=== PATIENT | female | born 1955 | race Caucasian/White ===

== ENCOUNTER → 2016-11-18 | Outpatient (CLI) | payer OTHER ==
[~2016-11-18] MED LIST: ALDACTONE25 MG PO; AMITRIPTYLINE H50 MG PO; AMPYRA10 MG PO; BACLOFEN10 MG PO; BACLOFEN20 M1 PO; BACTRIM DS TABL1 TA1; BUMEX2 MG PO; CALCIUM + D 6001 TA1 PO; CERTAGEN PO; CO Q10100 MG PO; CO Q10200 MG PO; CRESTOR PO; DIOVAN HCT 80/11 TAB PO; DIOVAN PO; FISH OIL 1,2001 CAP PO; FOSAMAX PO; FOSAMAX70 MG PO; FUROSEMIDE40 MG PO; HYDROCODON-ACE1 EAC7 PO; IBUPROFEN PO; IBUPROFEN400 MG PO; KCL PO; LEVAQUIN PO; LIDODERM30 EA; LIPITOR40 MG PO; LYRICA PO; MACROBID 100 M100 MG PO; MACROBID100 MG PO; MAGNESIUM250 M1 PO; MAGNESIUM500 MG PO; NATALIZUMAB; NATURAL VITA400 UNI2 PO; NEXIUM PO; OYSTER CALCIUM500 MG PO; PERCOCET PO; PROVIGIL; PROVIGIL PO; PROVIGIL100 MG PO; TYSABRI; TYSABRI IV; ULTRAM PO; VALSARTAN-HCTZ1 EACH PO; VICODIN PO; VITAMIN B-1000 MCG/1 IJ; VITAMIN B12; VITAMIN B6200 MG PO; VITAMIN D-32000 UNI1 PO; VITAMIN D31000 UNI1; WATER PILL; ZOCOR PO; [UNRECOGNIZED DRUG - OTHER]; [UNRECOGNIZED DRUG - OTHER]
== END | disposition home or self-care (01) ==
LOC: CSSDAY 09:48
DX: G35 Multiple sclerosis (principal); Z79.899 Other long term (current) drug therapy; Z88.5 Allergy status to narcotic agent
CPT/HCPCS: 96413; J2323

== ENCOUNTER → 2016-12-10 | Outpatient (CLI) | payer MEDICARE ==
--- NOTE | ~2016-12-10 | MY11 ---
[facility] A Service of [facility] RADIOLOGY TEXT RESULTS PATIENT: TABBY MÉNDEZ LOCATION: [facility] : 51 UNIT #: [id number] AGE: [address]: Napoleon Mckeon MD SEX: F ORDER DR: [id number] [address] [address] [id number] O MR#: [id number] Acc #: [id number] NAME: TABBY MÉNDEZ : 1955 SEX: F STUDY DATE/TIME: 12/10/2016 12:24 UNIT: [facility] ROOM: STUDY DESCRIPTION: MY Mammogram Screening Dig Cipriano Attending Physician: Napoleon Mckeon M.D. Referring Physician: Napoleon Mckeon M.D. Ordering Physician: Napoleon Mckeon M.D. Primary Care Physician: Napoleon Mckeon M.D. MEDICAL IMAGING REPORT This report is preliminary unless electronic signature is present. EXAM Digital screening mammogram, 12/10/2016 HISTORY 61-year-old woman no risk elevation. Annual screening. COMPARISON Mammograms date to 06/15/2008 with most recent screening comparison 12/02/2015. FINDINGS Digital imaging of each breast was completed utilizing screening protocol. Review includes FDA-approved CAD device. Breast parenchyma remains moderately dense with a nodular pattern bilaterally. There is mild subareolar duct prominence in each breast. There is no developing mass. I see no interval occurring microcalcifications and no suspicious architectural deformity. IMPRESSION Stable benign mammogram. Annual screening recommended. Patients over the age of 40 are entered into a reminder system with target due date for the next mammogram. A result letter will also be sent to the patient. BIRADS: 2 Benign Finding Dictated by... Mustapha Qiu M.D. THIS IS AN ELECTRONICALLY VERIFIED REPORT Mustapha Qiu M.D. at 12/10/2016 2:59 PM [facility] A Service [facility] RADIOLOGY TEXT RESULTS PATIENT: TABBY MÉNDEZ LOCATION: [facility] : 51 UNIT #: [id number] AGE: [address]: Napoleon Mckeon MD SEX: F ORDER DR: CHEN/steve TD: 12/10/2016 12:55 JOB #: [id number] MEDICAL IMAGING REPORT Page 1 of 1
== END | disposition home or self-care (01) ==
LOC: SMAM 11:34
DX: Z12.31 Encounter for screening mammogram for malignant neoplasm of breast (principal)
CPT/HCPCS: G0202

== ENCOUNTER → 2016-12-16 | Outpatient (CLI) | payer OTHER | END | disposition home or self-care (01) | LOC: CSSDAY 09:50 | DX: G35 Multiple sclerosis (principal); Z79.899 Other long term (current) drug therapy; Z88.5 Allergy status to narcotic agent | CPT/HCPCS: 96413; J2323 ==

== ENCOUNTER → 2017-01-13 | Outpatient (CLI) | payer OTHER ==
[2017-01-13 10:23] LABS: BASOPHIL# 0.1 X10e3 (0-0.3); BASOPHIL% 0.7 % (0-2.5); EOSINOPHIL# 0.6 X10e3 (0-0.7); EOSINOPHIL% 6.5 % (0.0-7.0); HEMATOCRIT 37.5 % (35.0-45.0); HEMOGLOBIN 12.4 gm/dL (12.0-16.0); LYMPHOCYTE# 3.6 X10e3 (1.0-3.5); LYMPHOCYTE% 39.4 % (17.0-45.0); MEAN CELL VOLUME 90.9 FL (83-96); MEAN CORPUSCULAR HEMOGLOBIN 30.1 PG (28-34); MEAN CORPUSCULAR HGB CONC 33.1 g/dL (30-36); MEAN PLATELET VOLUME 6.4 FL (6.5-11.5); MONOCYTE# 0.8 X10e3 (0-1.0); MONOCYTE% 8.8 % (3.0-12.0); NEUTROPHIL# 4.1 X10e3 (1.5-7.1); NEUTROPHIL% 44.6 % (40-75); PLATELET COUNT 233 X10e3 (140-420); RED BLOOD COUNT 4.12 X10e (3.90-5.30); RED CELL DISTRIBUTION WIDTH 14.3 % (11.0-15.5); WHITE BLOOD COUNT 9.2 X10e3 (4.0-10.5)
[2017-01-13 10:25] LABS: DIFF IND NO
[2017-01-13 11:15] LABS: BILIRUBIN,TOTAL 0.5 mg/dL (0.2-2.0); BUN/CREATININE RATIO 27.5; CALCIUM SERUM 9.7 mg/dL (8.4-10.2); CREATININE SERUM 0.8 mg/dL (0.6-1.4); GLOM FILT RATE Estimated 78.5 mL/min (>60); POTASSIUM 3.7 mmol/L (3.5-5.1); PROTEIN TOTAL SERUM 7.3 g/dL (6.0-8.3)
== END | disposition home or self-care (01) ==
LOC: CSSDAY 09:45
PROVIDERS: Nurse Practitioner
DX: G35 Multiple sclerosis (principal); Z79.899 Other long term (current) drug therapy; Z88.5 Allergy status to narcotic agent
CPT/HCPCS: 80053; 85025; 96413; J2323

== ENCOUNTER → 2017-02-10 | Outpatient (CLI) | payer OTHER | END | disposition home or self-care (01) | LOC: CSSDAY 09:00 | DX: G35 Multiple sclerosis (principal); Z88.5 Allergy status to narcotic agent | CPT/HCPCS: 96413; J2323 ==

== ENCOUNTER → 2017-03-10 | Outpatient (CLI) | payer OTHER | END | disposition home or self-care (01) | LOC: CSSDAY 07:15 | DX: G35 Multiple sclerosis (principal); Z79.899 Other long term (current) drug therapy; Z88.5 Allergy status to narcotic agent | CPT/HCPCS: 96413; J2323 ==

== ENCOUNTER → 2017-04-07 | Outpatient (CLI) | payer OTHER ==
[2017-04-07 10:32] LABS: BASOPHIL# 0.1 X10e3 (0-0.3); BASOPHIL% 0.6 % (0-2.5); EOSINOPHIL# 0.4 X10e3 (0-0.7); EOSINOPHIL% 4.3 % (0.0-7.0); HEMATOCRIT 33.4 % (35.0-45.0); HEMOGLOBIN 11.4 gm/dL (12.0-16.0); LYMPHOCYTE# 3.8 X10e3 (1.0-3.5); MEAN CELL VOLUME 90.5 FL (83-96); MEAN CORPUSCULAR HEMOGLOBIN 30.9 PG (28-34); MEAN CORPUSCULAR HGB CONC 34.2 g/dL (30-36); MEAN PLATELET VOLUME 6.1 FL (6.5-11.5); MONOCYTE# 0.9 X10e3 (0-1.0); NEUTROPHIL% 43.1 % (40-75); PLATELET COUNT 210 X10e3 (140-420); RED BLOOD COUNT 3.69 X10e (3.90-5.30); RED CELL DISTRIBUTION WIDTH 13.9 % (11.0-15.5); WHITE BLOOD COUNT 9.2 X10e3 (4.0-10.5)
[2017-04-07 10:53] LABS: DIFF IND NO
[2017-04-07 11:04] LABS: ALBUMIN SERUM 3.7 g/dL (3.5-5.0); BILIRUBIN,TOTAL 0.7 mg/dL (0.2-2.0); BUN/CREATININE RATIO 27.14; CREATININE SERUM 0.7 mg/dL (0.6-1.4); GLOM FILT RATE Estimated 92.2 mL/min (>60); POTASSIUM 3.7 mmol/L (3.5-5.1); PROTEIN TOTAL SERUM 6.7 g/dL (6.0-8.3)
== END | disposition home or self-care (01) ==
LOC: CSSDAY 09:00
PROVIDERS: Nurse Practitioner
DX: G35 Multiple sclerosis (principal); Z88.8 Allergy status to other drugs, medicaments and biological substances
CPT/HCPCS: 80053; 85025; 96365; J2323

== ENCOUNTER → 2017-05-05 | Outpatient (CLI) | payer OTHER | END | disposition home or self-care (01) | LOC: CSSDAY 07:15 | DX: G35 Multiple sclerosis (principal); Z88.5 Allergy status to narcotic agent | CPT/HCPCS: 96413; J2323 ==